=== PATIENT | female | born 1945 | race Caucasian/White ===

== ENCOUNTER 2016-04-17 16:25 | Emergency (ER) | payer MEDICARE, OTHER ==
--- NOTE | 2016-04-17 16:51 | ER NURSING DOCUMENTATION ---
Nurse's Notes [facility] Name:Patricia Miller Age:70 yrs Sex:Female :1945 Arrival Date:04/17/2016 Time:16:25 Bed2 Private MD:Ramón Gambino Diagnosis:Dog Bite Presentation: 04/17 16:26 Presenting complaint: Patient states: pt had a dog bit her on Monday and was sen at [facility] for the bite. pt comes in today concerned that the wound is red and warm to the touch. Transition of care: Home. 16:26 Method Of Arrival: Private Vehicle st 16:35 Acuity: YANNI 4 st Triage Assessment: 16:48 Bite description: bite sustained to left parks is red and warm to touch by a dog. st General: Appears in no apparent distress, Behavior is cooperative. Pain: Complains of pain in left parks Pain currently is 3 out of 10 on a pain scale. Aggravated by touch or walking. Historical: - Allergies: Ciprofloxacin; Ceclor; Vicodin; - Home Meds: 1. Cymbalta oral 2. diclofenac sodium oral 3. gabapentin oral 4. Levothroid Oral 5. Metoprolol Tartrate Oral 6. Myrbetriq oral 7. Temazepam Oral 8. Triamterene-Hydrochlorothiazid Oral - PMHx: AAA; Hiatal Hernia; Inguinal hernia; - PSHx: AAA REPAIR; Wilian Fundiplication; - Tetanus: < 10 years. - Ebola Screening: : Patient denies exposure to infectious person. Patient denies travel to an Ebola-affected area in the 21 days before illness onset. . - Social history: Smoking status: Patient states was never smoker of tobacco. Patient uses alcohol Patient/guardian denies using marijuana. Screenin:50 Infectious Disease Risk None. Abuse screen: Denies threats or abuse. Denies injuries st from another. Nutritional screening: No deficits noted. Vital Signs: 16:49 BP 122 / 72; Pulse 76; Resp 16; Temp 98.1; Pulse Ox 90% on R/A; Pain 3/10; st ED Course: 16:26 Patient arrived in ED. arc 16:26 Ramón Gambino is Private Physician. arc 16:30 Parish Helm MD is Attending Physician. sc 16:33 Ramón Gambino is Referral Physician. sc 16:35 Twombly, Summer, RN is Primary Nurse. st 16:[address] 16:50 Valuables Remains with patient. st Administered Medications: No medications were administered Outcome: 16:33 Discharge ordered by . me 16:50 Discharged to home ambulatory. st 16:50 Condition: improved 16:50 Discharge instructions given to patient, Instructed on D/cesar by Dr. Helm. 16:50 Patient left the ED. st Signatures: eRnetta Whitt RN RN st Chew, Scott, MD MD me Volodymyr, Mimi, Reg Reg arc
--- NOTE | 2016-04-17 16:51 | ER PHYSICIAN DOCUMENTATION ---
Physician Documentation [facility] Name:Patricia Miller Age:70 yrs Sex:Female :1945 Arrival Date:04/17/2016 Time:16:25 Bed2 Private MD:Ramón Gambino ED, Scott Disposition: 04/17/16 16:33 Discharged to Home/Self Care. Impression: Dog Bite. - Condition is Good. - Discharge Instructions: DOG BITE. - Prescriptions for Augmentin 875- 125 mg Oral Tablet - take 1 tablet by ORAL route every 12 hours for 10 days; 20 tablet. - Medical Reconciliation form form. - Follow up: Ramón Gambino; When: As needed; Reason: Worsening of condition. - Problem is new. - Symptoms are unchanged. HPI: 04/17 16:33 This 70 yrs old Female presents to ER with complaints of Dog Bite. sc 16:33 The patient was bitten on the left leg, by a dog, while fighting. Onset: The sc symptom(s)/episode began/occurred 4 day(s) ago. Animal information: Animal's vaccinations are up to date. The animal is known and can be quarantined, Animal control has been notified. Secondary to the bite the patient reports Associated signs and symptoms: The patient has no apparent associated signs or symptoms. Historical: - Allergies: Ciprofloxacin; Ceclor; Vicodin; - Home Meds: 1. Cymbalta oral 2. diclofenac sodium oral 3. gabapentin oral 4. Levothroid Oral 5. Metoprolol Tartrate Oral 6. Myrbetriq oral 7. Temazepam Oral 8. Triamterene-Hydrochlorothiazid Oral - PMHx: AAA; Hiatal Hernia; Inguinal hernia; - PSHx: AAA REPAIR; Wilian Fundiplication; - Tetanus: < 10 years. - Ebola Screening: : Patient denies exposure to infectious person. Patient denies travel to an Ebola-affected area in the 21 days before illness onset. . - Social history: Smoking status: Patient states was never smoker of tobacco. Patient uses alcohol Patient/guardian denies using marijuana. ROS: 16:34 Constitutional: Negative for fever, chills, and weight loss. sc Eyes: Negative for injury, pain, redness, and discharge. ENT: Negative for injury, pain, and discharge. Neck: Negative for injury, pain, and swelling. Cardiovascular: Negative for chest pain, palpitations, and edema. Back: Negative for injury and pain. 16:34 Neuro: Negative for headache, weakness, numbness, tingling, and seizure. sc 16:34 Skin: Positive for laceration(s). Exam: Constitutional: This is a well developed, well nourished patient who is awake, alert, and in no acute distress. Head/Face: Normocephalic, atraumatic. Eyes: Pupils equal round and reactive to light, extra-ocular motions intact. Lids and lashes normal. Conjunctiva and sclera are non-icteric and not injected. Cornea within normal limits. Periorbital areas with no swelling, redness, or edema. MS/ Extremity: Pulses equal, no cyanosis. Neurovascular intact. Full, normal range of motion, negative Homans's, calves equal bilaterally. 16:34 Neuro: Awake and alert, GCS 15, oriented to person, place, time, and situation. sc Cranial nerves II-XII grossly intact. Motor strength 5/5 in all extremities. Sensory grossly intact. Cerebellar exam normal. Normal gait. 16:34 Skin: Wound recheck: Puncture: no discharge, no erythema. Vital Signs: 16:49 BP 122 / 72; Pulse 76; Resp 16; Temp 98.1; Pulse Ox 90% on R/A; Pain 3/10; st MDM: 16:31 Patient medically screened. md 16:35 Differential diagnosis: superficial laceration, vascular injury, rabies, cellulitis. md Infection risk factors: bite below the knee. Rabies Status: Rabies immunization is not indicated. Data reviewed: vital signs, nurses notes, and as a result, I will discharge patient, administer antibiotics. Counseling: I had a detailed discussion with the patient and/or guardian regarding: the historical points, exam findings, and any diagnostic results supporting the discharge/admit diagnosis, the need for outpatient follow up, to return to the emergency department if symptoms worsen or persist or if there are any questions or concerns that arise at home. Dispensed Medications: No medications were administered Signatures: Renetta Whitt RN RN st Chew, Scott, MD MD md
== END 2016-04-17 16:50 | disposition home or self-care (01) ==
LOC: ER 16:25
DX: S81.852A Open bite, left lower leg, initial encounter (principal); W54.0XXA Bitten by dog, initial encounter; Z79.899 Other long term (current) drug therapy
CPT/HCPCS: 99281; 99282; G0102